=== PATIENT | female | born 1970 | race Caucasian/White ===

== ENCOUNTER 2017-01-02 14:20 | Emergency (ER) | payer OTHER ==
--- NOTE | ~2017-01-02 | CR72 ---
[facility] A Service of [facility] & [facility] RADIOLOGY TEXT RESULTS PATIENT: CHRISTIAN GILLESPIE LOCATION: SED : 70 UNIT #: [id number] AGE: [address]: Thiago Cantu MD SEX: F ORDER DR: [id number] [place] [id number] E MR#: [id number] Acc #: [id number] NAME: CHRISTIAN GILLESPIE : 1970 SEX: F STUDY DATE/TIME: 01/02/2017 14:47 UNIT: SED ROOM: STUDY DESCRIPTION: CR Chest Single View Portable Attending Physician: Thiago Cantu M.D. Ordering Physician: Thiago Cantu M.D. Primary Care Physician: Carlos Enrique Cherry M.D. MEDICAL IMAGING REPORT This report is preliminary unless electronic signature is present. EXAM Portable chest, 01/02/17. HISTORY Shortness of breath since 12/31/16. Benign essential hypertension and cough. Smoking history. FINDINGS A single AP portable view of the chest shows both lungs to be clear. The heart is normal in size. The mediastinal contour is normal. No significant bone abnormalities are seen. IMPRESSION Normal portable chest. Dictated by... Maldonado Horta M.D. THIS IS AN ELECTRONICALLY VERIFIED REPORT Maldonado Horta M.D. at 01/03/2017 2:13 PM LEIF/zina TD: 01/02/2017 16:59 JOB #: [id number] MEDICAL IMAGING REPORT Page 1 of 1
[~2017-01-02 14:20] MED LIST: FLEXERIL10 M1 PO; TENORMIN25 MG PO; VOLTAREN75 MG PO; ZOLOFT50 MG PO
[2017-01-02] MEDS ORDERED: PREDNISONE (14:31)
[2017-01-02] MEDS ORDERED: ALBUTEROL17 GM INH (14:32)
[2017-01-02] MEDS ORDERED: DOXYCYCLINE PO (14:32)
== END 2017-01-02 16:04 | disposition home or self-care (01) ==
LOC: SED 14:20
DX: J40 Bronchitis, not specified as acute or chronic (principal); F17.200 Nicotine dependence, unspecified, uncomplicated
CPT/HCPCS: 71010; 94640; 99283